=== PATIENT | female | born 1945 | race Caucasian/White ===

== ENCOUNTER 2024-03-12 19:33 | Inpatient (IN) ==
[2024-03-12] MEDS: Morphine 4 MG/ML VIAL (1 ml) IV ONE (20:22)
[2024-03-12] MEDS: Ondansetron 4 mg VIAL 2 MG/ML 2 ml VIAL IV ONE (20:23)
[2024-03-12] MEDS: Heparin 5000 UNITS/ML 1 mL VIAL SUBCUT ONE (20:55)
[2024-03-12 21:52] LABS: ABS Lymphocytes 0.8 10^3/uL (1.0-4.8); ABS Monocytes 0.6 10^3/uL (0.0-0.9); ABS Neutrophils 7.3 10^3/uL (1.5-7.6); Hematocrit 29.1 % (35-45); Hemoglobin 9.6 g/dL (11.5-14.3); Lymphocyte % 9.7 %; Mean Corpuscular Hemoglobin 26.4 pg (27-33); Mean Corpuscular Hgb Conc 33.2 g/dL (31-36); Mean Corpuscular Volume 79.5 fL (80-97); Mean Platelet Volume 6.2 fL (7.5-11.2); Platelet Count 511 10^3/uL (150-450); Red Blood Count 3.65 10^6/uL (3.63-4.92); Red Cell Distribution Width 17.3 % (12-17); White Blood Count 8.7 10^3/uL (3.8-11.8)
[2024-03-12 22:02] LABS: INR 1.16 (0.85-1.14)
[2024-03-12 22:41] LABS: Creatinine, Serum 0.59 mg/dL (0.51-0.95); eGFR CKD-EPI 93.3 (>60)
[2024-03-13] MEDS ORDERED: Acetaminophen IV 1 GM/100ML 1,000 MG/100 ML BAG IV PRN (00:09)
[2024-03-13 06:30] LABS: % Iron Saturation 10 % (15-55); .Transferrin 146 mg/dL (203-362); Anion Gap 5 mmol/L (2-16); Blood Urea Nitrogen 11 mg/dL (6-24); CO2 Carbon Dioxide 29 mmol/L (22-32); Calcium 8.2 mg/dL (8.6-10.3); Chloride 99 mmol/L (101-111); Glucose 126 mg/dL (70-100); Iron < 20 ug/dL (50-212); Potassium 3.8 mmol/L (3.5-5.0); Sodium 133 mmol/L (135-145); Total Iron Binding Capacity 204 mcg/dL (250-450); Unsaturated Iron Binding 184 ug/dL; eGFR CKD-EPI 97.1 (>60)
[2024-03-13 06:45] LABS: TSH Ultra Thyroid Stim Horm 0.69 mcIU/mL (0.34-5.60)
[2024-03-13 06:53] LABS: Ferritin 108.6 ng/mL (11-307)
[2024-03-13] MEDS: Morphine 2 MG/ML SYRINGE IV PRN (06:53)
[2024-03-13 06:56] LABS: Folate > 20.00 ng/mL (5.90-24.80)
[2024-03-13 06:57] LABS: Vitamin B12 > 1450 pg/mL (180-914)
[2024-03-13] MEDS: Pantoprazole VIAL 40 MG VIAL IV SCH (09:50)
[2024-03-13 10:15] LABS: ABS Lymphocytes 1.1 10^3/uL (1.0-4.8); ABS Monocytes 0.5 10^3/uL (0.0-0.9); ABS Neutrophils 3.8 10^3/uL (1.5-7.6); Eosinophil % 0.8 %; Hematocrit 25.1 % (35-45); Hemoglobin 8.4 g/dL (11.5-14.3); Lymphocyte % 19.6 %; Mean Corpuscular Hemoglobin 26.4 pg (27-33); Mean Corpuscular Hgb Conc 33.3 g/dL (31-36); Mean Corpuscular Volume 79.1 fL (80-97); Mean Platelet Volume 6.8 fL (7.5-11.2); Nucleated Red Blood Cells % 0.1 %/100WBC (0.0-0.8); Platelet Count 399 10^3/uL (150-450); Red Blood Count 3.17 10^6/uL (3.63-4.92); Red Cell Distribution Width 17.2 % (12-17); White Blood Count 5.4 10^3/uL (3.8-11.8)
[2024-03-13] MEDS ORDERED: fentaNYL 100 mcg/2 ml 50 MCG/ML VIAL IV PRN (12:34)
[2024-03-13] MEDS ORDERED: Naloxone 0.4 mg VIAL 0.4 mg/ml 1 ml VIAL IV PRN (12:34)
[2024-03-13] MEDS ORDERED: NS 0.45% 1000 ml BAG 1,000 ML IV SCH (13:00)
[2024-03-13] MEDS ORDERED: Midazolam 2 mg/2 ml VIAL 1 mg/ml 2 ml VIAL (2 mg) ONE (14:40)
[2024-03-13] MEDS ORDERED: fentaNYL 100 mcg/2 ml 50 MCG/ML VIAL ONE (14:40)
[2024-03-13] MEDS ORDERED: Propofol 10 MG/ML 20 ML BTL ONE (14:42)
[2024-03-13] MEDS ORDERED: Lidocaine 2% PF 5 ML VIAL ONE (14:42)
[2024-03-13] MEDS ORDERED: Rocuronium 50 mg VIAL 10 mg/ml 5 ml VIAL (50 mg) ONE (14:43)
[2024-03-13] MEDS ORDERED: Dexamethasone IV 4 MG/ML VIAL 1 ml VIAL ONE (14:44)
[2024-03-13] MEDS ORDERED: Ondansetron 4 mg VIAL 2 MG/ML 2 ml VIAL ONE ×2 (14:44→18:43)
[2024-03-13] MEDS ORDERED: ceFAZolin 2 GM PREMIX 2 GM/50 ML BAG ONE (15:45)
[2024-03-13] MEDS ORDERED: Morphine 2 MG/ML SYRINGE IV PRN (18:20)
[2024-03-13] MEDS: Ondansetron 4 mg VIAL 2 MG/ML 2 ml VIAL IV PRN (18:44)
[2024-03-13] MEDS ORDERED: Metoclopramide 5 MG/ML VIAL (10 mg) ONE (18:54)
[2024-03-13] MEDS: Metoclopramide 5 MG/ML VIAL (10 mg) IV SLOW PU ONE (18:59)
[2024-03-13] MEDS: Acetaminophen IV 1 GM/100ML 1,000 MG/100 ML BAG IV ONE (20:15)
[2024-03-13] MEDS: Lactated Ringers 1000 ml BAG 1,000 ML IV SCH ×2 (20:15→21:19)
[2024-03-13] MEDS: Buffered Lidocaine 1% SYRIN 1 ml INTRADERM ONE (20:15)
[2024-03-14] MEDS: ceFAZolin 2 GM PREMIX 2 GM/50 ML BAG IV SCH (00:58)
[2024-03-14 05:57] LABS: ABS Lymphocytes 0.9 10^3/uL (1.0-4.8); ABS Monocytes 0.7 10^3/uL (0.0-0.9); ABS Nucleated RBC 0.01 10^3/ul; Hematocrit 22.1 % (35-45); Hemoglobin 7.5 g/dL (11.5-14.3); Lymphocyte % 12.1 %; Mean Corpuscular Hemoglobin 26.8 pg (27-33); Mean Corpuscular Hgb Conc 33.7 g/dL (31-36); Mean Corpuscular Volume 79.4 fL (80-97); Mean Platelet Volume 6.5 fL (7.5-11.2); Nucleated Red Blood Cells % 0.1 %/100WBC (0.0-0.8); Platelet Count 372 10^3/uL (150-450); Red Blood Count 2.79 10^6/uL (3.63-4.92); White Blood Count 7.6 10^3/uL (3.8-11.8)
[2024-03-14 06:18] LABS: Albumin 2.9 g/dL (3.2-5.2); Albumin/Globulin Ratio 0.9 (1-3); Calcium 8.3 mg/dL (8.6-10.3); Creatinine, Serum 0.59 mg/dL (0.51-0.95); Globulin 3.1 g/dL (2-4); Potassium 4.1 mmol/L (3.5-5.0); Total Bilirubin 0.2 mg/dL (0.2-1.0); eGFR CKD-EPI 93.3 (>60)
[2024-03-14] MEDS: Enoxaparin 40 MG/0.4 ML SYR SUBCUT SCH (14:01)
[2024-03-14] MEDS ORDERED: Polyethylene Glycol 3350 17 GM PACKET PO PRN (15:13)
[2024-03-14] MEDS: Magnesium Hydroxide LIQ 30 ML UDC PO PRN (15:46)
[2024-03-15 06:16] LABS: Hematocrit 22.8 % (35-45); Hemoglobin 7.6 g/dL (11.5-14.3)
[2024-03-15 06:18] LABS: ABS Lymphocytes 0.8 10^3/uL (1.0-4.8); ABS Monocytes 0.6 10^3/uL (0.0-0.9); ABS Neutrophils 5.4 10^3/uL (1.5-7.6); Eosinophil % 0.6 %; Hematocrit 22.2 % (35-45); Hemoglobin 7.5 g/dL (11.5-14.3); Lymphocyte % 11.3 %; Mean Corpuscular Hemoglobin 26.9 pg (27-33); Mean Corpuscular Volume 79.2 fL (80-97); Mean Platelet Volume 6.6 fL (7.5-11.2); Platelet Count 413 10^3/uL (150-450); Red Cell Distribution Width 17.2 % (12-17); White Blood Count 6.9 10^3/uL (3.8-11.8)
[2024-03-15 06:36] LABS: Urine Appearance Clear; Urine Bilirubin Negative (Negative); Urine Blood Trace (Negative); Urine Color Light-Yellow; Urine Glucose Negative (Negative); Urine Ketones Negative (Negative); Urine Nitrite Negative (Negative); Urine Protein Trace (Negative); Urine Specific Gravity 1.017 (1.002-1.030); Urine Urobilinogen Negative (Negative); Urine pH 6.5 (5.0-8.0)
[2024-03-16 06:09] LABS: ABS Eosinophils 0.2 10^3/uL (0.0-0.5); ABS Lymphocytes 1.5 10^3/uL (1.0-4.8); ABS Monocytes 0.6 10^3/uL (0.0-0.9); ABS Neutrophils 4.7 10^3/uL (1.5-7.6); Eosinophil % 2.4 %; Hematocrit 20.4 % (35-45); Hemoglobin 6.7 g/dL (11.5-14.3); Mean Corpuscular Hemoglobin 25.9 pg (27-33); Mean Corpuscular Hgb Conc 32.8 g/dL (31-36); Mean Platelet Volume 6.4 fL (7.5-11.2); Platelet Count 399 10^3/uL (150-450); Red Blood Count 2.59 10^6/uL (3.63-4.92); Red Cell Distribution Width 17.5 % (12-17)
[2024-03-16 06:26] LABS: Creatinine, Serum 0.4 mg/dL (0.51-0.95); Potassium 4.1 mmol/L (3.5-5.0); eGFR CKD-EPI 102.5 (>60)
[2024-03-17 06:03] LABS: ABS Eosinophils 0.2 10^3/uL (0.0-0.5); ABS Lymphocytes 2.1 10^3/uL (1.0-4.8); ABS Monocytes 0.6 10^3/uL (0.0-0.9); ABS Neutrophils 4.3 10^3/uL (1.5-7.6); Eosinophil % 2.1 %; Hematocrit 24.4 % (35-45); Hemoglobin 8.3 g/dL (11.5-14.3); Lymphocyte % 29.6 %; Mean Corpuscular Hemoglobin 27.2 pg (27-33); Mean Corpuscular Hgb Conc 34.1 g/dL (31-36); Mean Corpuscular Volume 79.6 fL (80-97); Mean Platelet Volume 6.3 fL (7.5-11.2); Nucleated Red Blood Cells % 0.1 %/100WBC (0.0-0.8); Platelet Count 430 10^3/uL (150-450); Red Blood Count 3.07 10^6/uL (3.63-4.92); Red Cell Distribution Width 17.1 % (12-17); White Blood Count 7.2 10^3/uL (3.8-11.8)
[2024-03-17 06:48] LABS: Calcium 8.1 mg/dL (8.6-10.3); Creatinine, Serum 0.35 mg/dL (0.51-0.95); Potassium 4.1 mmol/L (3.5-5.0); eGFR CKD-EPI 105.9 (>60)
[2024-03-18 05:36] LABS: ABS Eosinophils 0.2 10^3/uL (0.0-0.5); ABS Lymphocytes 1.7 10^3/uL (1.0-4.8); ABS Monocytes 0.6 10^3/uL (0.0-0.9); ABS Neutrophils 4.3 10^3/uL (1.5-7.6); Eosinophil % 3.1 %; Hematocrit 23.1 % (35-45); Hemoglobin 7.9 g/dL (11.5-14.3); Lymphocyte % 24.5 %; Mean Corpuscular Hemoglobin 27.4 pg (27-33); Mean Corpuscular Hgb Conc 34.2 g/dL (31-36); Mean Corpuscular Volume 80.1 fL (80-97); Mean Platelet Volume 6.1 fL (7.5-11.2); Platelet Count 475 10^3/uL (150-450); Red Blood Count 2.88 10^6/uL (3.63-4.92); Red Cell Distribution Width 17.4 % (12-17); White Blood Count 6.7 10^3/uL (3.8-11.8)
[2024-03-18 06:01] LABS: Calcium 8.2 mg/dL (8.6-10.3); Creatinine, Serum 0.39 mg/dL (0.51-0.95); Potassium 4.1 mmol/L (3.5-5.0); eGFR CKD-EPI 103.1 (>60)
[2024-03-19 05:47] LABS: ABS Basophils 0.1 10^3/uL (0.0-0.1); ABS Eosinophils 0.3 10^3/uL (0.0-0.5); ABS Lymphocytes 1.8 10^3/uL (1.0-4.8); ABS Monocytes 0.6 10^3/uL (0.0-0.9); ABS Neutrophils 3.5 10^3/uL (1.5-7.6); ABS Nucleated RBC 0.01 10^3/ul; Eosinophil % 4.3 %; Hematocrit 23.8 % (35-45); Hemoglobin 7.9 g/dL (11.5-14.3); Mean Corpuscular Hemoglobin 26.9 pg (27-33); Mean Corpuscular Volume 81.5 fL (80-97); Mean Platelet Volume 6.1 fL (7.5-11.2); Nucleated Red Blood Cells % 0.1 %/100WBC (0.0-0.8); Platelet Count 507 10^3/uL (150-450); Red Blood Count 2.92 10^6/uL (3.63-4.92); Red Cell Distribution Width 17.4 % (12-17); White Blood Count 6.1 10^3/uL (3.8-11.8)
[2024-03-19 09:57] VITALS: BP 102/51
[2024-03-19 13:08] LABS: Rapid COVID-19 Molecular Undetected (Undetected)
== END 2024-03-19 14:15 | disposition swing bed (61) | DRG 481 ==
LOC: EDHOLD 19:33 → ED 19:33 → SUATTDRO 20:27 → AA 03-13 13:42 → SSU 03-13 20:01
PROVIDERS: ADMIT Hospitalist; ATTEND Hospitalist